=== PATIENT | male | born 1995 | race American Indian/Alaskan Native ===

== ENCOUNTER 2021-02-11 20:03 | Inpatient (IN) | payer OTHER ==
[~2021-02-11 20:03] MED LIST: CHOLECALCIFEROL (VIT D3) 5,000 UNIT TAB PO SCH
--- NOTE | 2021-02-11 20:15 | Event Note ---
ED Screening Note Date of service: 02/11/21 Time: 20:14 ED Screening Note: Patient is a 25-year-old -L[place] male with a history of sickle cell anemia with occasional pain crisis presents to the ED with complaint of acute onset persistent shortness of breath, chest tightness, chest pain, and diffuse body aches and pains with generalized weakness for the last 5 days, worse in the last 24 hours. Patient states that any exertion makes the pain and the shortness of breath worse. Patient denies dizziness, syncope, fever, chills, nausea, vomiting, diarrhea, abdominal pain, dysuria, urinary frequency and urgency or headache. This initial assessment/diagnostic orders/clinical plan/treatment(s) is/are subject to change based on patients health status, clinical progression and re- assessment by fellow clinical providers in the ED. Further treatment and workup at subsequent clinical providers discretion. Patient/guardian urged not to elope from the ED as their condition may be serious if not clinically assessed and managed. Initial orders include: CBC, CMP, troponin, EKG, chest x-ray, sed rate, reticulocyte count
[2021-02-11 20:42] LABS: Basophils % (Auto) 0.2 % (0.0-1.8); Eosinophils % (Auto) 0.5 % (0.0-4.3); Hematocrit 34.7 % (35.5-45.6); Hemoglobin 11.9 gm/dl (11.8-15.2); Lymphocytes # (Auto) 1.4 K/mm3 (1.2-5.4); Lymphocytes % (Auto) 26.6 % (13.4-35.0); Mean Corpuscular HGB Conc 34 % (32-34); Mean Corpuscular Volume 84 fl (84-94); Monocytes # (Auto) 0.7 K/mm3 (0.0-0.8); Monocytes % (Auto) 12.4 % (0.0-7.3); Platelet Count 199 K/mm3 (140-440); Red Blood Count 4.16 M/mm3 (3.65-5.03); Red Cell Distribution Width 12.7 % (13.2-15.2)
--- NOTE | 2021-02-11 20:57 | XRay Report ---
CHEST 1 VIEW 02/11/2021 7:45 PM INDICATION / CLINICAL INFORMATION: DYSPNEA, CHEST PAIN. COMPARISON: None available. FINDINGS: SUPPORT DEVICES: None. HEART / MEDIASTINUM: No significant abnormality. LUNGS / PLEURA: Probable pneumatoceles right midlung field. Mild/moderate bilateral streaky parenchym al disease characteristic for pneumonia. No pneumothorax. ADDITIONAL FINDINGS: No significant additional findings. IMPRESSION: 1. Bilateral pneumonia with probable right-sided pneumatoceles Signer Name: Bon Vivas MD Signed: 02/11/2021 8:52 PM Workstation Name: [id number]
[2021-02-11 20:59] LABS: Alanine Aminotransferase 16 units/L (7-56); Albumin 3.8 g/dL (3.9-5); BUN/Creatinine Ratio 14; Blood Urea Nitrogen 17 mg/dL (9-20); Calcium 8.5 mg/dL (8.4-10.2); Hemolysis Index 16
[2021-02-11 21:05] LABS: Erythrocyte Sedimentation Rate 83 mm/Hr (0-20)
[2021-02-11] MEDS ORDERED: AZITHROMYCIN 250 MG TAB PO ONE (21:06)
[2021-02-11] MEDS ORDERED: cefTRIAXone/NS 1 GM/50 ML 1 GM/50 ML BAG IV ONE (21:06)
[2021-02-11] MEDS ORDERED: SODIUM CHLORIDE 0.9% 1000 ML 1,000 ML IV ONE ×2 (21:08→21:12)
[2021-02-11] MEDS ORDERED: methylPREDNISolone Sod Succinate 125 MG/2 ML INJ IV ONE (21:12)
[2021-02-11] MEDS ORDERED: IPRATROPIUM 0.02% NEBU 2.5 ML IH ONE (21:12)
[2021-02-11] MEDS ORDERED: KETOROLAC 30 MG/1 ML INJ IV ONE (21:13)
[2021-02-11] MEDS ORDERED: dexAMETHasone 4 MG/ML VIAL IV ONE (21:46)
[2021-02-11] MEDS ORDERED: MORPHINE 4 MG/1 ML INJ IV ONE (21:46)
[2021-02-11] MEDS ORDERED: ONDANSETRON 4 MG/2 ML INJ IV ONE (21:46)
--- NOTE | 2021-02-11 21:51 | Emergency Department Report ---
ED Shortness of Breath HPI - General Chief Complaint: Dyspnea/Respdistress Stated Complaint: POSSIBLE COVID/SOB Time Seen by Provider: 02/11/21 21:42 Source: patient Mode of arrival: Ambulatory Limitations: No Limitations - History of Present Illness Initial Comments: Patient is 25 years old male with history of sickle cell disease. Patient stated that he recently moved from [place] so he does not have a primary care physician in [place] yet. Patient presented to the ER complaining of chest pain, diffuse, sharp with no radiation. Patient stated that his chest pain associated with shortness of breath and cough and fever and chills sometimes. Symptoms started 5 days ago. Patient also reported nausea and vomiting. Patient stated that he did not receive his COVID-19 vaccine yet. Patient found to be febrile with blood pressure of 94/42 and a heart rate of 122. Sepsis protocol immediately initiated and patient received normal saline 30 mL/KG, Zithromax and Rocephin. Patient also suspected to have COVID-19 pneumonia so isolation precaution immediately started. MD Complaint: shortness of breath, cough, chest pain, pain with inspiration -: days(s) (5) Consistency: constant - Related Data Previous Rx's Medication Instructions Recorded Last Taken Type Ascorbic Acid [Vitamin C] 1,000 mg PO BID #20 tablet 02/12/21 Unknown Rx Cholecalciferol (Vitamin D3) 5,000 unit PO DAILY #10 tablet 02/12/21 Unknown Rx [Vitamin D3] Folic Acid [Folvite] 1 mg PO QDAY #10 tablet 02/12/21 Unknown Rx Zinc Sulfate 220 mg PO BID #20 capsule 02/12/21 Unknown Rx dexAMETHasone [Decadron] 6 mg PO DAILY #10 tablet 02/12/21 Unknown Rx Allergies Allergy/AdvReac Type Severity Reaction Status Date / Time No Known Allergies Allergy Unverified 02/11/21 20:22 ED Review of Systems ROS: Stated complaint: POSSIBLE COVID/SOB Other details as noted in HPI Comment: All other systems reviewed and negative Constitutional: chills, fever Respiratory: cough, orthopnea, shortness of breath, SOB with exertion, SOB at rest. denies: wheezing Cardiovascular: chest pain, palpitations Gastrointestinal: nausea, vomiting. denies: abdominal pain, diarrhea, constipation, hematemesis Musculoskeletal: denies: back pain Neurological: denies: headache, weakness, numbness, paresthesias, confusion, abnormal gait ED Past Medical Hx - Past Medical History Previous Medical History?: Yes Additional medical history: Sickle Cell Trait - Surgical History Past Surgical History?: No - Social History Smoking Status: Former Smoker Substance Use Type: None - Medications Home Medications: Home Medications Medication Instructions Recorded Confirmed Last Taken Type Ascorbic Acid [Vitamin C] 1,000 mg PO BID #20 tablet 02/12/21 Unknown Rx Cholecalciferol (Vitamin D3) 5,000 unit PO DAILY #10 tablet 02/12/21 Unknown Rx [Vitamin D3] Folic Acid [Folvite] 1 mg PO QDAY #10 tablet 02/12/21 Unknown Rx Zinc Sulfate 220 mg PO BID #20 capsule 02/12/21 Unknown Rx dexAMETHasone [Decadron] 6 mg PO DAILY #10 tablet 02/12/21 Unknown Rx ED Physical Exam - General Limitations: No Limitations General appearance: alert, in distress - Head Head exam: Present: atraumatic, normocephalic, normal inspection - Eye Eye exam: Present: normal appearance, PERRL - ENT ENT exam: Present: mucous membranes dry - Neck Neck exam: Present: normal inspection, full ROM. Absent: tenderness, meningismus - Respiratory Respiratory exam: Present: respiratory distress, rales, decreased breath sounds. Absent: wheezes, rhonchi, accessory muscle use, prolonged expiratory - Cardiovascular Cardiovascular Exam: Present: tachycardia - GI/Abdominal GI/Abdominal exam: Present: soft, normal bowel sounds. Absent: distended, tenderness, guarding, rebound, rigid, organomegaly, mass, bruit, pulsatile mass, hernia - Extremities Exam Extremities exam: Present: normal inspection, full ROM, normal capillary refill. Absent: tenderness, pedal edema, joint swelling, calf tenderness - Back Exam Back exam: Present: normal inspection, full ROM. Absent: CVA tenderness (R), CVA tenderness (L) - Neurological Exam Neurological exam: Present: alert, oriented X3, CN II-XII intact - Psychiatric Psychiatric exam: Present: normal mood - Skin Skin exam: Present: warm, dry, intact, normal color ED Course Vital Signs 02/11/21 02/12/21 20:08 00:32 Temperature 99.0 F Pulse Rate 122 H 88 Respiratory 18 20 Rate Blood Pressure 94/60 Blood Pressure 114/72 [Left] O2 Sat by Pulse 98 96 Oximetry ED Medical Decision Making - Lab Data Result diagrams: 02/12/21 05:16 02/12/21 05:16 - Radiology Data Radiology results: report reviewed - Medical Decision Making Patient is 25 years old male with history of sickle cell disease. Patient stated that he recently moved from [place] so he does not have a primary care physician in [place] yet. Patient presented to the ER complaining of chest pain, diffuse, sharp with no radiation. Patient stated that his chest pain associated with shortness of breath and cough and fever and chills sometimes. Symptoms started 5 days ago. Patient also reported nausea and vomiting. Patient stated that he did not receive his COVID-19 vaccine yet. Patient found to be febrile with blood pressure of 94/42 and a heart rate of 122. Sepsis protocol immediately initiated and patient received normal saline 30 mL/KG, Zithromax and Rocephin. Patient also suspected to have COVID-19 pneumonia so isolation precaution immediately started. Chest x-ray showed bilateral pneumonia. I discussed the patient with Dr. Márquez, he agreed to admit the patient to medical service for further management. Critical Care Time: Yes Critical care time in (mins) excluding proc time.: 30 Critical care attestation.: If time is entered above; I have spent that time in minutes in the direct care of this critically ill patient, excluding procedure time. ED Disposition Clinical Impression: Acute sepsis, Bilateral pneumonia, Suspected 2019-nCoV infection, Sickle cell crisis Disposition: -09 OP ADMIT IP TO THIS HOSP Is pt being admited?: Yes Condition: Stable
[2021-02-11] MEDS ORDERED: ACETAMINOPHEN 325 MG TAB PO ONE (21:57)
[2021-02-11] MEDS ORDERED: ALBUTEROL 2.5 MG/3 ML NEBU IH ONE (22:12)
[2021-02-11] MEDS ORDERED: MORPHINE 2 MG/1 ML INJ IV PRN (23:17)
[2021-02-11] MEDS ORDERED: ONDANSETRON 4 MG/2 ML INJ IV PRN (23:17)
[2021-02-11] MEDS ORDERED: MAGNESIUM HYDROXIDE (MOM) ORAL LIQD UDC PO PRN (23:17)
[2021-02-11] MEDS ORDERED: ACETAMINOPHEN 325 MG TAB PO PRN (23:17)
[2021-02-11] MEDS ORDERED: diphenhydrAMINE 50 MG/ML VIAL IV PRN (23:17)
--- NOTE | 2021-02-11 23:23 | History and Physical Report ---
History of Present Illness Date of examination: 02/11/21 Date of admission: 02/11/21 Chief complaint: shortness of breath History of present illness: Patient is 25 years old male with history of sickle cell disease. Patient stated that he recently moved from [place] so he does not have a primary care physician in [place] yet. Patient presented to the ER complaining of chest pain, diffuse, sharp with no radiation. Patient stated that his chest pain associated with shortness of breath and cough and fever and chills sometimes. Symptoms started 5 days ago. Patient also reported nausea and vomiting. Patient stated that he did not receive his COVID-19 vaccine yet. ED work-up shows bilateral pneumonia with probable right-sided pneumatoceles and chest x-ray. WBC 5.3, hemoglobin 11.9 platelets 199, reticular count 0.49. Sodium 133, potassium 4.3 serum glucose 105 troponin negative and albumin 3.8. Patient seen in the ED. At bedside. Patient alert oriented x3. Patient said he came to the hospital after having shortness of breath while climbing up s tairs to his apartment. Patient said he did not get Covid shot. He denies tobacco, alcohol, and illicit drug use. Past History Past Medical History: other (sickle cell disease) Past Surgical History: No surgical history Social history: no significant social history, lives with family Family history: other (sickle cell disease father's family) Medications and Allergies Allergies Allergy/AdvReac Type Severity Reaction Status Date / Time No Known Allergies Allergy Unverified 02/11/21 20:22 Review of Systems Constitutional: fatigue, weakness, malaise Ears, nose, mouth and throat: no epistaxis, no bleeding gums Cardiovascular: lightheadedness, shortness of breath Respiratory: cough, shortness of breath, respiratory infections Gastrointestinal: no hematochezia Rectal: no hemorrhoids Musculoskeletal: no hot joints Integumentary: no rash, no pruritis Neurological: no head injury Psychiatric: no suicidal ideation, no disorientation Hematologic/Lymphatic: easy bruising Allergic/Immunologic: urticaria Exam - Constitutional Vitals: Temp Pulse Resp BP Pulse Ox 99.0 F 122 H 18 94/60 98 02/11/21 20:08 02/11/21 20:08 02/11/21 20:08 02/11/21 20:08 02/11/21 20:08 General appearance: Present: mild distress, well-nourished - EENT Eyes: Present: PERRL ENT: hearing intact, clear oral mucosa - Neck Neck: Present: supple, normal ROM - Respiratory Respiratory effort: normal Respiratory: bilateral: CTA - Cardiovascular Heart Sounds: Present: S1 & S2. Absent: rub, click - Extremities Extremities: pulses symmetrical, No edema Peripheral Pulses: within normal limits - Abdominal General gastrointestinal: Present: soft, non-tender, non-distended, normal bowel sounds Male genitourinary: Present: normal - Integumentary Integumentary: Present: clear, warm, dry - Musculoskeletal Musculoskeletal: strength equal bilaterally, generalized weakness - Psychiatric Psychiatric: appropriate mood/affect, intact judgment & insight, cooperative - Neurologic Neurologic: CNII-XII intact, moves all extremities - Allied Health Allied health notes reviewed: nursing HEART Score - HEART Score Troponin: Troponin T < 0.010 ng/mL (0.00-0.029) 02/11/21 20:18 Results - Labs CBC & Chem 7: 02/11/21 20:18 02/11/21 23:12 Labs: Abnormal lab results 02/11/21 02/11/21 Range/Units 20:18 20:18 Hct 34.7 L (35.5-45.6) % RDW 12.7 L (13.2-15.2) % [place] % (Auto) 12.4 H (0.0-7.3) % Percent Retic 0.49 L (0.78-2.58) % Sodium 133 L (137-145) mmol/L Chloride 95.4 L (98-107) mmol/L Glucose 105 H (75-100) mg/dL Albumin 3.8 L (3.9-5) g/dL Assessment and Plan - Patient Problems (1) Bilateral pneumonia Current Visit: Yes Status: Acute Plan to address problem: Likely secondary to viral/bacterial infection Continue antibiotic therapy. As needed bronchodilator and oxygen supplement if needed Patient is presently on room air with O2 sat at 95 to 97% (2) Sickle cell crisis Current Visit: Yes Status: Acute Plan to address problem: History of sickle cell crisis Reticulocyte blood count normal and hemoglobin normal Patient denies pain at this time (3) Suspected 2019-nCoV infection Current Visit: Yes Status: Acute Plan to address problem: Monitor inflammatory markers Isolation with Covid protocol Advised on the use of incentive spirometer and proning ID consultfollow-up with recommendation (4) DVT prophylaxis Current Visit: Yes Status: Acute Plan to address problem: Lovenox
[2021-02-11] MEDS ORDERED: D5W/0.45% NACL 1,000 ML IV SCH (23:45)
[2021-02-12 05:49] VITALS: BP 97/31
[2021-02-12] MEDS ORDERED: SODIUM CHLORIDE 0.9% 250ML 250 ML IV ONE (06:00)
[2021-02-12 06:37] LABS: Basophils % (Auto) 0.1 % (0.0-1.8); Hematocrit 35.3 % (35.5-45.6); Hemoglobin 11.9 gm/dl (11.8-15.2); Lymphocytes # (Auto) 1.1 K/mm3 (1.2-5.4); Lymphocytes % (Auto) 26.8 % (13.4-35.0); Mean Corpuscular HGB Conc 34 % (32-34); Mean Corpuscular Volume 85 fl (84-94); Monocytes # (Auto) 0.1 K/mm3 (0.0-0.8); Monocytes % (Auto) 3.4 % (0.0-7.3); Platelet Count 185 K/mm3 (140-440); Red Blood Count 4.18 M/mm3 (3.65-5.03); Red Cell Distribution Width 12.7 % (13.2-15.2)
[2021-02-12 06:46] LABS: INR 1.05 (0.87-1.13)
[2021-02-12 06:48] LABS: BUN/Creatinine Ratio 20; Blood Urea Nitrogen 22 mg/dL (9-20); Hemolysis Index 2
[2021-02-12] MEDS ORDERED: FOLIC ACID 1 MG TAB PO SCH (10:00)
[2021-02-12] MEDS ORDERED: AZITHROMYCIN/NS 500 MG/250 ML 500 MG/250 ML BAG IV SCH (10:00)
[2021-02-12] MEDS ORDERED: cefTRIAXone/NS 2 GM/100 ML 2 GM/100 ML BAG IV SCH (10:00)
[2021-02-12] MEDS ORDERED: MULTIVITAMINS ,THERAPEUTIC TAB PO SCH (10:00)
--- NOTE | 2021-02-12 10:54 | Progress Note ---
Assessment and Plan -- Bilateral pneumonia Likely secondary to viral/bacterial infection Continue antibiotic therapy. As needed bronchodilator and oxygen supplement if needed Patient is presently on room air with O2 sat at 95 to 97% -- Sickle cell crisis History of sickle cell crisis Reticulocyte blood count normal and hemoglobin normal Patient denies pain at this time -- Suspected 2019-nCoV infection Monitor inflammatory markers Isolation with Covid protocol Advised on the use of incentive spirometer and proning ID consultfollow-up with recommendation --DVT prophylaxis Lovenox Daily clinical course: 02/12/21: EKG suggestive of possible pericarditis, troponin normal, consult cardiology, follow COVID result Subjective Date of service: 02/12/21 Interval history: Patient seen and examined. Medical records and medication list reviewed. No acute event overnight noted by the RN. Patient on RA. Patient is tolerating diet. EKG is abnormal Discussed plan of care at bedside with patient. Objective - Exam Narrative Exam: General appearance: Present: mild distress, well-nourished - EENT Eyes: Present: PERRL ENT: hearing intact, clear oral mucosa - Neck Neck: Present: supple, normal ROM - Respiratory Respiratory effort: normal Respiratory: bilateral: CTA - Cardiovascular Heart Sounds: Present: S1 & S2. Absent: rub, click - Extremities Extremities: pulses symmetrical, No edema Peripheral Pulses: within normal limits - Abdominal General gastrointestinal: Present: soft, non-tender, non-distended, normal bowel sounds Male genitourinary: Present: normal - Integumentary Integumentary: Present: clear, warm, dry - Musculoskeletal Musculoskeletal: strength equal bilaterally, generalized weakness - Psychiatric Psychiatric: appropriate mood/affect, intact judgment & insight, cooperative - Neurologic Neurologic: CNII-XII intact, moves all extremities - Constitutional Vitals: Vital Signs - 12hr 02/12/21 02/12/21 02/12/21 00:32 01:43 05:47 Pulse Rate 88 74 48 L Pulse Rate [ From Monitor] Respiratory 20 20 16 Rate Blood Pressure 103/55 97/31 Blood Pressure 114/72 [Left] O2 Sat by Pulse 96 97 100 Oximetry 02/12/21 09:59 Pulse Rate Pulse Rate [ 45 L From Monitor] Respiratory Rate Blood Pressure Blood Pressure [Left] O2 Sat by Pulse Oximetry - Labs CBC & Chem 7: 02/12/21 05:16 02/12/21 05:16 Labs: Abnormal lab results 02/11/21 02/11/21 02/11/21 Range/Units 20:18 20:18 23:12 WBC (4.5-11.0) K/mm3 Hct 34.7 L (35.5-45.6) % RDW 12.7 L (13.2-15.2) % [place] % (Auto) 12.4 H (0.0-7.3) % Lymph # (Auto) (1.2-5.4) K/mm3 Percent Retic 0.49 L (0.78-2.58) % D-Dimer 1845.21 H (0-234) ng/mlDDU Sodium 133 L (137-145) mmol/L Chloride 95.4 L (98-107) mmol/L BUN (9-20) mg/dL Glucose 105 H (75-100) mg/dL Ferritin (30.0-300.0) ng/mL Lactate Dehydrogenase (91-180) units/L C-Reactive Protein (0.00-1.30) mg/dL Albumin 3.8 L (3.9-5) g/dL 02/11/21 02/11/21 02/12/21 Range/Units 23:12 23:12 05:16 WBC 4.1 L (4.5-11.0) K/mm3 Hct 35.3 L (35.5-45.6) % RDW 12.7 L (13.2-15.2) % [place] % (Auto) (0.0-7.3) % Lymph # (Auto) 1.1 L (1.2-5.4) K/mm3 Percent Retic 0.60 L (0.78-2.58) % D-Dimer (0-234) ng/mlDDU Sodium (137-145) mmol/L Chloride (98-107) mmol/L BUN (9-20) mg/dL Glucose 106 H (75-100) mg/dL Ferritin 742.0 H (30.0-300.0) ng/mL Lactate Dehydrogenase 328 H (91-180) units/L C-Reactive Protein 6.00 H (0.00-1.30) mg/dL Albumin (3.9-5) g/dL 02/12/21 Range/Units 05:16 WBC (4.5-11.0) K/mm3 Hct (35.5-45.6) % RDW (13.2-15.2) % [place] % (Auto) (0.0-7.3) % Lymph # (Auto) (1.2-5.4) K/mm3 Percent Retic (0.78-2.58) % D-Dimer (0-234) ng/mlDDU Sodium (137-145) mmol/L Chloride (98-107) mmol/L BUN 22 H (9-20) mg/dL Glucose 153 H (75-100) mg/dL Ferritin (30.0-300.0) ng/mL Lactate Dehydrogenase 337 H (91-180) units/L C-Reactive Protein (0.00-1.30) mg/dL Albumin (3.9-5) g/dL HEART Score - HEART Score Troponin: Troponin T < 0.010 ng/mL (0.00-0.029) 02/12/21 09:31
--- NOTE | 2021-02-12 12:18 | Consultation ---
History of Present Illness Consult date: 02/12/21 Consult reason: chest pain History of present illness: 25 YO man with h/o sickle cell disease who presented to ED with several days of worsening cough (non-stop per patient) and chest pain. He describes the pain as a sharp sensation in his mid chest which only happens when he coughs. He has not noticed any association between chest pain and exertion. There is no positional component to his chest pain. He has not been vaccinated for Covid. Testing for Covid is currently pending and he is PUI for Covid. His troponins have been negative and chest Xray is suggestive of bilateral pneumonia. ECG reveals sinus bradycardia at [address] elevation suggestive of early repolarization or pericarditis Past History Past Medical History: other (sickle cell disease) Past Surgical History: No surgical history Social history: no significant social history, lives with family Family history: other (sickle cell disease father's family) Medications and Allergies Allergies Allergy/AdvReac Type Severity Reaction Status Date / Time No Known Allergies Allergy Unverified 02/11/21 20:22 Home Medications Medication Instructions Recorded Confirmed Last Taken Type No Known Home Medications [No 02/12/21 02/12/21 Unknown History Reported Home Medications] Active Meds: Active Medications Acetaminophen (Acetaminophen 325 Mg Tab) 650 mg PO Q4H PRN PRN Reason: Pain MILD(1-3)/Fever >100.5/[place] Bisacodyl (Bisacodyl 10 Mg Rect Supp) 10 mg NV QDAY PRN PRN Reason: Constipation unrelieved by MOM Diphenhydramine HCl (Diphenhydramine 50 Mg/Ml Vial) 25 mg IV Q6H PRN PRN Reason: Itching Enoxaparin Sodium (Enoxaparin 40 Mg/0.4 Ml Inj) 40 mg SUB-Q QDAY@2200 FAVIOLA; Protocol Folic Acid (Folic Acid 1 Mg Tab) 1 mg PO QDAY FAVIOLA Last Admin: 02/12/21 09:26 Dose: 1 mg Documented by: Ceftriaxone Sodium (Rocephin/Ns 2 Gm/100 Ml) 2 gm in 100 mls @ 200 mls/hr IV Q24HR FAVIOLA; Protocol Last Admin: 02/12/21 09:25 Dose: 200 mls/hr Documented by: Azithromycin (Zithromax/Ns) 500 mg in 250 mls @ 250 mls/hr IV Q24HR FAVIOLA; Protocol Last Admin: 02/12/21 09:26 Dose: 250 mls/hr Documented by: Magnesium Hydroxide (Magnesium Hydroxide (Mom) Oral Liqd Udc) 30 ml PO Q4H PRN PRN Reason: Constipation Morphine Sulfate (Morphine 2 Mg/1 Ml Inj) 2 mg IV Q4H PRN PRN Reason: Pain, Moderate (4-6) Multivitamins (Multivitamins ,Therapeutic Tab) 1 each PO QDAY [facility] Last Admin: 02/12/21 09:26 Dose: 1 each Documented by: Ondansetron HCl (Ondansetron 4 Mg/2 Ml Inj) 4 mg IV Q8H PRN PRN Reason: Nausea And Vomiting Senna (Sennosides 8.6 Mg Tab) 17.2 mg PO QHS [facility] Sodium Chloride (Sodium Chloride 0.9% 10 Ml Flush Syringe) 10 ml IV BID FAVIOLA Sodium Chloride (Sodium Chloride 0.9% 10 Ml Flush Syringe) 10 ml IV PRN PRN PRN Reason: LINE FLUSH Review of Systems All systems: negative (per hpi) Physical Examination Vital Signs Temp Pulse Resp BP Pulse Ox 99.0 F 122 H 18 94/60 98 02/11/21 20:08 02/11/21 20:08 02/11/21 20:08 02/11/21 20:08 02/11/21 20:08 Narrative exam: Not personally examined as patient is currently PUI for COVID Results 02/12/21 05:16 02/12/21 05:16 Cardiac Enzymes 02/11/21 02/11/21 02/12/21 Range/Units 20:18 23:12 05:16 AST 35 (5-40) units/L Lactate Dehydrogenase 328 H 337 H (91-180) units/L Coagulation 02/12/21 Range/Units 05:16 PT 14.3 (12.2-14.9) Sec. INR 1.05 (0.87-1.13) CBC 02/11/21 02/12/21 Range/Units 20:18 05:16 WBC 5.3 4.1 L (4.5-11.0) K/mm3 RBC 4.16 4.18 (3.65-5.03) M/mm3 Hgb 11.9 11.9 (11.8-15.2) gm/dl Hct 34.7 L 35.3 L (35.5-45.6) % Plt Count 199 185 (140-440) K/mm3 Lymph # (Auto) 1.4 1.1 L (1.2-5.4) K/mm3 [place] # (Auto) 0.7 0.1 (0.0-0.8) K/mm3 Eos # (Auto) 0.0 0.0 (0.0-0.4) K/mm3 Baso # (Auto) 0.0 0.0 (0.0-0.1) K/mm3 Comprehensive Metabolic Panel 02/11/21 02/11/21 02/12/21 Range/Units 20:18 23:12 05:16 Sodium 133 L 137 (137-145) mmol/L Potassium 4.3 4.6 (3.6-5.0) mmol/L Chloride 95.4 L 98.8 (98-107) mmol/L Carbon Dioxide 28 28 (22-30) mmol/L BUN 17 22 H (9-20) mg/dL Creatinine 1.2 1.1 (0.8-1.3) mg/dL Glucose 105 H 106 H 153 H (75-100) mg/dL Calcium 8.5 9.0 (8.4-10.2) mg/dL AST 35 (5-40) units/L ALT 16 (7-56) units/L Alkaline Phosphatase 67 (35-129) units/L Total Protein 7.3 (6.3-8.2) g/dL Albumin 3.8 L (3.9-5) g/dL Assessment and Plan 1. Pleuritic chest pain 2. Pneumonia and possible COVID infection 3. ECG suggestive of pericarditis Recommend: Continue current therapy and follow inflammatory markers Check Echocardiogram Add anti-inflammatory therapy if patient develops significant chest pain (other than symptoms associated with cough).
--- NOTE | 2021-02-12 12:36 | Consultation ---
History of Present Illness - Reason for Consult Consult date: 02/12/21 - History of Present Illness 25-year-old man past medical history of sickle cell disease presented to hospital complaining of chest pain which was associated with shortness of breath and cough. He also notes some fevers and chills. This began approximately 5 days prior to admission. He also complains of nausea and vomiting. He did not received COVID-19 vaccine. Afebrile, white count 4.1. Pending Covid PCR. Procalcitonin 0.37. Elevated inflammatory markers. Blood cultures no growth so far. Currently on ceftri axone and azithromycin. Imaging personally reviewed: Chest x-ray: Bilateral pneumonia Review of systems: Deferred to reduce to the risk of transmission of COVID-19 Past History Past Medical History: other (sickle cell disease) Past Surgical History: No surgical history Social history: no significant social history, lives with family Family history: other (sickle cell disease father's family) Medications and Allergies Allergies Allergy/AdvReac Type Severity Reaction Status Date / Time No Known Allergies Allergy Unverified 02/11/21 20:22 Home Medications Medication Instructions Recorded Confirmed Last Taken Type No Known Home Medications [No 02/12/21 02/12/21 Unknown History Reported Home Medications] Active Meds: Active Medications Acetaminophen (Acetaminophen 325 Mg Tab) 650 mg PO Q4H PRN PRN Reason: Pain MILD(1-3)/Fever >100.5/GIBBONS Bisacodyl (Bisacodyl 10 Mg Rect Supp) 10 mg OK QDAY PRN PRN Reason: Constipation unrelieved by MOM Diphenhydramine HCl (Diphenhydramine 50 Mg/Ml Vial) 25 mg IV Q6H PRN PRN Reason: Itching Enoxaparin Sodium (Enoxaparin 40 Mg/0.4 Ml Inj) 40 mg SUB-Q QDAY@2200 FAVIOLA; Protocol Folic Acid (Folic Acid 1 Mg Tab) 1 mg PO QDAY FAVIOLA Last Admin: 02/12/21 09:26 Dose: 1 mg Documented by: Ceftriaxone Sodium (Rocephin/Ns 2 Gm/100 Ml) 2 gm in 100 mls @ 200 mls/hr IV Q24HR FAVIOLA; Protocol Last Admin: 02/12/21 09:25 Dose: 200 mls/hr Documented by: Azithromycin (Zithromax/Ns) 500 mg in 250 mls @ 250 mls/hr IV Q24HR FAVIOLA; Protocol Last Admin: 02/12/21 09:26 Dose: 250 mls/hr Documented by: Magnesium Hydroxide (Magnesium Hydroxide (Mom) Oral Liqd Udc) 30 ml PO Q4H PRN PRN Reason: Constipation Morphine Sulfate (Morphine 2 Mg/1 Ml Inj) 2 mg IV Q4H PRN PRN Reason: Pain, Moderate (4-6) Multivitamins (Multivitamins ,Therapeutic Tab) 1 each PO QDAY FAVIOLA Last Admin: 02/12/21 09:26 Dose: 1 each Documented by: Ondansetron HCl (Ondansetron 4 Mg/2 Ml Inj) 4 mg IV Q8H PRN PRN Reason: Nausea And Vomiting Senna (Sennosides 8.6 Mg Tab) 17.2 mg PO QHS FAVIOLA Sodium Chloride (Sodium Chloride 0.9% 10 Ml Flush Syringe) 10 ml IV BID FAVIOLA Sodium Chloride (Sodium Chloride 0.9% 10 Ml Flush Syringe) 10 ml IV PRN PRN PRN Reason: LINE FLUSH Physical Examination - Physical Exam Narrative exam: Physical exam deferred to reduce risk of transmission of COVID-19. Please refer to primary team's note. - Constitutional Vitals: Vital Signs Temp Pulse Resp BP Pulse Ox 99.0 F 45 L 16 97/31 100 02/11/21 20:08 02/12/21 09:59 02/12/21 05:47 02/12/21 05:47 02/12/21 05:47 Temperature -Last 24 Hours Temperature 99.0 F Results - Labs CBC & Chem 7: 02/12/21 05:16 02/12/21 05:16 Labs: Abnormal lab results 02/11/21 02/11/21 02/11/21 Range/Units 20:18 20:18 23:12 WBC (4.5-11.0) K/mm3 Hct 34.7 L (35.5-45.6) % RDW 12.7 L (13.2-15.2) % [place] % (Auto) 12.4 H (0.0-7.3) % Lymph # (Auto) (1.2-5.4) K/mm3 Percent Retic 0.49 L (0.78-2.58) % D-Dimer 1845.21 H (0-234) ng/mlDDU Sodium 133 L (137-145) mmol/L Chloride 95.4 L (98-107) mmol/L BUN (9-20) mg/dL Glucose 105 H (75-100) mg/dL Ferritin (30.0-300.0) ng/mL Lactate Dehydrogenase (91-180) units/L C-Reactive Protein (0.00-1.30) mg/dL Albumin 3.8 L (3.9-5) g/dL 02/11/21 02/11/21 02/12/21 Range/Units 23:12 23:12 05:16 WBC 4.1 L (4.5-11.0) K/mm3 Hct 35.3 L (35.5-45.6) % RDW 12.7 L (13.2-15.2) % [place] % (Auto) (0.0-7.3) % Lymph # (Auto) 1.1 L (1.2-5.4) K/mm3 Percent Retic 0.60 L (0.78-2.58) % D-Dimer (0-234) ng/mlDDU Sodium (137-145) mmol/L Chloride (98-107) mmol/L BUN (9-20) mg/dL Glucose 106 H (75-100) mg/dL Ferritin 742.0 H (30.0-300.0) ng/mL Lactate Dehydrogenase 328 H (91-180) units/L C-Reactive Protein 6.00 H (0.00-1.30) mg/dL Albumin (3.9-5) g/dL 02/12/21 Range/Units 05:16 WBC (4.5-11.0) K/mm3 Hct (35.5-45.6) % RDW (13.2-15.2) % [place] % (Auto) (0.0-7.3) % Lymph # (Auto) (1.2-5.4) K/mm3 Percent Retic (0.78-2.58) % D-Dimer (0-234) ng/mlDDU Sodium (137-145) mmol/L Chloride (98-107) mmol/L BUN 22 H (9-20) mg/dL Glucose 153 H (75-100) mg/dL Ferritin (30.0-300.0) ng/mL Lactate Dehydrogenase 337 H (91-180) units/L C-Reactive Protein (0.00-1.30) mg/dL Albumin (3.9-5) g/dL Assessment and Plan Cultures: Blood culture no growth so far Covid PCR A/P: 25-year-old man no past medical history presented as Covid PUI #Covid PUI: Pending PCR, with bilateral pneumonia. #Bilateral pneumonia: Elevated procalcitonin 0.37. Recs: -Continue empiric ceftriaxone azithromycin given elevated procalcitonin. -Follow-up Covid PCR -If Covid PCR positive and patient requiring supplemental oxygen, would start remdesivir for 5 days. Thank you for the consult, we will continue to follow. Monet Everett MD [facility] ([facility] O: [phone] F: [phone]
--- NOTE | 2021-02-12 13:20 | Electrocardiograph Report ---
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
--- NOTE | 2021-02-12 13:23 | Electrocardiograph Report ---
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
[2021-02-12] MEDS ORDERED: REMDESIVIR 200 MG in SODIUM CHLORIDE 0.9% 250ML 250 ML IV ONE (15:05)
[2021-02-12] MEDS ORDERED: DEXAMETHASONE 4 MG TAB PO SCH (15:05)
[2021-02-12] MEDS ORDERED: IPRATROPIUM/ALBUTEROL SULFATE 3 ML AMPUL.NEB IH SCH (15:15)
[2021-02-12] MEDS ORDERED: SODIUM CHLORIDE 0.9% 50 ML IVPB IV SCH (21:00)
[2021-02-12] MEDS ORDERED: SENNOSIDES 8.6 MG TAB PO SCH (22:00)
[2021-02-12] MEDS ORDERED: ASCORBIC ACID 500 MG TAB PO SCH (22:00)
[2021-02-12] MEDS ORDERED: ENOXAPARIN 40 MG/0.4 ML INJ SUB-Q SCH (22:00)
[2021-02-12] MEDS ORDERED: ZINC SULFATE 220 MG CAP PO SCH (22:00)
[2021-02-13] MEDS ORDERED: cefTRIAXone/NS 2 GM/100 ML 2 GM/100 ML BAG IV SCH (10:00)
[2021-02-13] MEDS ORDERED: AZITHROMYCIN/NS 500 MG/250 ML 500 MG/250 ML BAG IV SCH (10:00)
[2021-02-13] MEDS ORDERED: REMDESIVIR 100 MG in SODIUM CHLORIDE 0.9% 250ML 250 ML IV SCH (21:00)
== END 2021-02-12 16:50 | disposition home or self-care (01) | DRG 871 ==
LOC: ED 20:03 → 3A 22:59
PROVIDERS: ADMIT Internal Medicine Geriatric Medicine; ATTEND Internal Medicine
DX: A41.9 Sepsis, unspecified organism (principal); J18.9 Pneumonia, unspecified organism; D57.00 Hb-SS disease with crisis, unspecified; R07.81 Pleurodynia; Z20.822 Contact with and (suspected) exposure to COVID-19; Z87.891 Personal history of nicotine dependence
CPT/HCPCS: 36415; 71045; 80048; 80053; 82140; 82728; 82947; 83615; 84145; 84484; 85025; 85045; 85379; 85610; 85652; 86140; 87040; 93005; 96361; 96365; 96375; G0378; J0456; J0696; J1885; J2930; J7030; J7050; U0003

== ENCOUNTER 2021-07-11 12:24 | Emergency (ER) | payer SELFPAY ==
[2021-07-11 12:29] VITALS: BP 120/85
--- NOTE | 2021-07-11 13:30 | Emergency Department Report ---
ED General Adult HPI - General Chief complaint: Extremity Problem,Nontraumatic Stated complaint: Extremity pain Time Seen by Provider: 07/11/21 12:33 Source: patient Mode of arrival: Ambulatory Limitations: No Limitations - History of Present Illness Initial comments: 26-year-old -[place] male patient presents with complaints of swelling bilaterally to his axillary area x1 week. Patient states it initially began in his left axillary area and then 2 days later began swelling in his right axillary area. The pain improved in the right axillary area along with the swelling, however the pain in the left axillary area continues to worsen. He denies any fever/chills/sweats. Patient has a history of HIV and was recently diagnosed in January/February of this year. He reports he took antiretrovirals for 1 month and then when he was placed in senior living, he was not continued on his antiretrovirals and therefore has been without them for 3 to 4 months now. He also complains of itchy rash to his lower face for the past couple weeks. No other past medical history per patient. Severity scale (0 -10): 8 - Related Data Previous Rx's Medication Instructions Recorded Last Taken Type Ascorbic Acid [Vitamin C] 1,000 mg PO BID #20 tablet 02/12/21 Unknown Rx Cholecalciferol (Vitamin D3) 5,000 unit PO DAILY #10 tablet 02/12/21 Unknown Rx [Vitamin D3] Folic Acid [Folvite] 1 mg PO QDAY #10 tablet 02/12/21 Unknown Rx Zinc Sulfate 220 mg PO BID #20 capsule 02/12/21 Unknown Rx dexAMETHasone [Decadron] 6 mg PO DAILY #10 tablet 02/12/21 Unknown Rx Acetaminophen/Codeine [Tylenol 1 tab PO Q8H PRN 10 Days #10 tab 07/11/21 Unknown Rx /Codeine # 3 tab] Clindamycin [Clindamycin CAP] 300 mg PO Q6H 10 Days #40 capsule 07/11/21 Unknown Rx Fluconazole [Diflucan TAB] 200 mg PO QDAY 1 Days #1 tablet 07/11/21 Unknown Rx Ibuprofen [Motrin 800 MG tab] 800 mg PO Q8HR PRN #20 tablet 07/11/21 Unknown Rx Allergies Allergy/AdvReac Type Severity Reaction Status Date / Time No Known Allergies Allergy Unverified 02/11/21 20:22 ED Review of Systems ROS: Stated complaint: Extremity pain Other details as noted in HPI Constitutional: denies: chills, diaphoresis, fever, malaise, weakness Respiratory: denies: cough Cardiovascular: denies: chest pain Endocrine: denies: excessive sweating Gastrointestinal: denies: abdominal pain, nausea, vomiting Musculoskeletal: denies: joint swelling, arthralgia Skin: rash. denies: change in color ED Past Medical Hx - Past Medical History Hx Congestive Heart Failure: No Hx Diabetes: No Hx Asthma: No Hx COPD: No Hx HIV: No Additional medical history: Sickle Cell Trait - Social History Smoking Status: Former Smoker Substance Use Type: None - Medications Home Medications: Home Medications Medication Instructions Recorded Confirmed Last Taken Type Ascorbic Acid [Vitamin C] 1,000 mg PO BID #20 tablet 02/12/21 Unknown Rx Cholecalciferol (Vitamin D3) 5,000 unit PO DAILY #10 tablet 02/12/21 Unknown Rx [Vitamin D3] Folic Acid [Folvite] 1 mg PO QDAY #10 tablet 02/12/21 Unknown Rx Zinc Sulfate 220 mg PO BID #20 capsule 02/12/21 Unknown Rx dexAMETHasone [Decadron] 6 mg PO DAILY #10 tablet 02/12/21 Unknown Rx Acetaminophen/Codeine [Tylenol 1 tab PO Q8H PRN 10 Days #10 tab 07/11/21 Unknown Rx /Codeine # 3 tab] Clindamycin [Clindamycin CAP] 300 mg PO Q6H 10 Days #40 capsule 07/11/21 Unknown Rx Fluconazole [Diflucan TAB] 200 mg PO QDAY 1 Days #1 tablet 07/11/21 Unknown Rx Ibuprofen [Motrin 800 MG tab] 800 mg PO Q8HR PRN #20 tablet 07/11/21 Unknown Rx ED Physical Exam - General Limitations: No Limitations General appearance: alert, in no apparent distress - Head Head exam: Present: atraumatic, normocephalic - Eye Eye exam: Present: normal appearance. Absent: scleral icterus - Respiratory Respiratory exam: Absent: respiratory distress - Cardiovascular Cardiovascular Exam: Present: regular rate - Neurological Exam Neurological exam: Present: alert, oriented X3 - Psychiatric Psychiatric exam: Present: normal affect, normal mood - Skin Skin exam: Present: warm, dry, intact, normal color, other (Moderate sized tender round area noted to left axillary area which is noted to be soft and no surrounding induration is noted; small area of round swelling noted to right axillary without surrounding induration or erythema; area is mildly tender). Absent: rash ED Course Vital Signs 07/11/21 07/11/21 12:26 13:26 Temperature 98.4 F Pulse Rate 111 H 82 Respiratory 14 14 Rate Blood Pressure 120/85 [Right] O2 Sat by Pulse 100 98 Oximetry ED Medical Decision Making - Medical Decision Making 26-year-old -[place] male patient presents with complaints of swelling bilaterally to his axillary area x1 week. Patient states it initially began in his left axillary area and then 2 days later began swelling in his right axillary area. The pain improved in the right axillary area along with the swelling, however the pain in the left axillary area continues to worsen. He denies any fever/chills/sweats. Patient has a history of HIV and was recently diagnosed in January/February of this year. He reports he took antiretrovirals for 1 month and then when he was placed in senior living, he was not continued on his antiretrovirals and therefore has been without them for 3 to 4 months now. He also complains of itchy rash to his lower face for the past couple weeks. No other past medical history per patient. On exam there is a significantly tender brown soft area noted to the left axillary and small area of round tenderness noted to the right axillary without induration or erythema or cellulitic changes. Given patient's history of u ntreated HIV, I am unsure if this is lymphadenopathy versus abscess of the axilla. Given this information, we will not incise and drain and will treat with antibiotics and warm compresses for now. Patient given information for follow-up with HIV clinics and informed to follow-up as soon as possible. He is afebrile in his heart rate is normal. Discussed in detail signs and symptoms that should prompt immediate return to the ED, patient verbalizes understanding. Critical care attestation.: If time is entered above; I have spent that time in minutes in the direct care of this critically ill patient, excluding procedure time. ED Disposition Clinical Impression: Axillary pain Disposition: 01 HOME / SELF CARE / HOMELESS Is pt being admited?: No Condition: Stable Instructions: Skin Abscess, Lymphadenopathy Additional Instructions: [facility] [address] [place] [address] Saturday - Saturday: 8 AM - 5 PM Extended hours on (Main) (Appointments) Prescriptions: Clindamycin [Clindamycin CAP] 300 mg PO Q6H 10 Days #40 capsule Fluconazole [Diflucan TAB] 200 mg PO QDAY 1 Days #1 tablet Ibuprofen [Motrin 800 MG tab] 800 mg PO Q8HR PRN #20 tablet PRN Reason: Pain, Moderate (4-6) Acetaminophen/Codeine [Tylenol /Codeine # 3 tab] 1 tab PO Q8H PRN 10 Days #10 tab PRN Reason: Pain , Severe (7-10) Referrals: [facility] [Provider Group] - 3-5 Days
== END 2021-07-11 14:15 | disposition home or self-care (01) ==
LOC: ED 12:24
DX: M79.621 Pain in right upper arm (principal); M79.622 Pain in left upper arm; M79.89 Other specified soft tissue disorders; Z87.891 Personal history of nicotine dependence; Z79.899 Other long term (current) drug therapy
CPT/HCPCS: 99282